=== PATIENT | female | born 1945 | race African-American/Black ===

== ENCOUNTER 2020-05-12 13:34 | Observation (INO) | payer MEDICARE, MEDICAID, SELFPAY ==
[2020-05-12] VITALS (13 sets, daily range): BP systolic 122–159; BP diastolic 66–97; PULSE 66–104; RESP 16–18; TEMP 36.2–36.4; O2SAT 91–99; BMI 27.6
--- NOTE | 2020-05-12 | IR_ITS ---
APPROVED REPORT Patient Location: Inpatient Washing Machine Striper: MARLENA Dao RT (R) PROCEDURES 1. Left heart cathaterization 2. Selective coronary arteriography 3. Left Ventriculography 4. [place] Beckie Graft arteriography 5. CAMACHO arteriography INDICATION 1. Unstable Angina, 2. Coronary artery disease, 3. CABG Informed consent was obtained prior to the procedure. COMPLICATIONS NONE Estimated Blood Loss: LESS THAN 10 ML TECHNIQUE One percent lidocaine was used to anesthetize the right groin. The right femoral artery was accessed via the Seldinger technique. A 4-Italian sheath was placed in the right femoral artery. The JL-4 and JR-4 catheter was also used to perform left heart catheterization left ventriculogram and selective coronary angiogram. At the end of the procedure the patient was transferred to the post-op holding area in stable condition for arterial sheath removal. ANGIOGRAPHIC RESULTS The left main artery normal The left anterior descending artery stent in mid, with 50% mid in stent The circumflex artery 100% occlusion of OM1. normal flow to [place] LCx The right coronary artery mild luminal irregularities The GRIFFITH ventriculogram reveals Ef 60%. no WMA. no MR The left ventricular end-diastolic pressure 12 SVG to OM1 patent. CAMACHO small and 100% prior to touchdown. angioseal to right groin IMPRESSION 1. Severe 1 vessel CAD with 100% of proximal OM1 2. Patent SVG to OM1 3. Moderate in stent stenosis LAD 4. Small but occluded CAMACHO to LAD 5. Normal LV function 6. Normal LVEDP 7. Angioseal right groin PLAN 1. Dual chamber pacer today. Medical mgmt for coronaries. If pt has continued symptoms, consider FFR of LAD. At this time, hhigh grade 2:1 AV block and 3' heart block takes precidence. Normal EF. F/U next week with me in cardiology clinic. Electronically signed by : Daniel Berkowitz, 05/13/2020 07:41:49
--- NOTE | 2020-05-12 | IR_ITS ---
APPROVED REPORT Patient Location: Inpatient Component Assembler Supervisor: MARLENA Dao RT (R) PROCEDURES 1. Pocket formation for Permanent Pacemaker Placement. 2. Placement of an atrial sensing and pacing coil into the right atrial appendage. 3. Placement of a ventricular sensing and pacing coil in the right ventricular apex. 4. Permanent Pacemaker Placement. INDICATION Second degree heart block Mobitz II, Third degree heart block Informed consent was obtained prior to the procedure. COMPLICATIONS None Estimated Blood Loss: Less than 10 mls TECHNIQUE 1% Lidocaine with epinephrine used to anesthetized the left anterior aspect of the chest. Scalpel was used to make the initial cutaneous incision while electrocautery was used to dissect down tinto the fascia. The fascia was lifted off the pectoralis muscle and digitally manipulated creating a pocket for the pacemaker. The patient was then placed in Trendelenburg position and the subclavian vein was accessed twice via the Selinger technique, there are two wires in the vein. A 6 Albanian sheath was placed under fluoroscopic guidance into the subclavian vein over one of the wires while keeping the other wire in place within the subclavian vein. The dilator was removed from the sheath. Using fluoroscopic guidance, the ventricular lead was placed into the right ventricular apex, screwed and secured into place. Electronic interrogation proved acceptable thresholds and voltage within the lead. Using 3-0 silk, the ventricular lead was then secured into place. Lead was secured to the facia using the 3-0 silk. Following this, the sheath was pealed away. An additional 6 Albanian fresh sheath and dilator was placed over the existing wire. Using fluoroscopic guidance, the atrial lead was the placed into the right atrial appendage and screwed and secured in place. Electrical interrogation demonstrated acceptable thresholds and voltage number. The atrial lead was then secured into place using 3-0 silk. 1 gram of Ancef was used to flush the pocket. Following the pacemaker generator being secured to the fascia and in place, Monocryl was used to close the subcutaneous layers while omid were used to close the cutaneous layer. A pressure dressing was placed and the patient was transferred to the postop holding area in stable condition for postoperative care. Dr Daniel Berkowitz was primary smoking tobacco packing machine hand, Dr Antonio Valverde observed. INTERROGATION Generator Model number: [address], L311 Generator Serial number: [id number] Atrial lead model number: INGEVITY+ 45cm, 7840 Atrial lead serial number: [id number] P-wave: 3.0mV Impedence: 670 ohms Threshold: 1.0V@0.4ms Right Ventricular lead model number: INGEVITY+ 52cm, 7841 Right Ventricular lead serial number: [id number] R-wave: 15.0mV Impedence: 800 ohms Threshold: 1.0V@0.4ms Pacing Parameters: Mode: DDDR Base/Max Track: 60/130ppm No diaphragmatic stimulation at 10 volts. IMPRESSION 1. Successful pocket formation for Permanent Pacemaker Placement. 2. Successful placement of an atrial sensing and pacing coil into the right atrial appendage. 3. Successful placement of a ventricular sensing and pacing coil in the right ventricular apex. 4. Successful permanent Pacemaker Placement. PLAN 1. follow up office visit, post op wound care Electronically signed by : Daniel Berkowitz, 05/13/2020 07:41:00
--- NOTE | 2020-05-12 13:57 | PC.NURSE ---
called dr. larson office to relay that patient had arrived
--- NOTE | 2020-05-12 14:29 | P.CONPHA_ITS ---
[facility] Pharmacy VTE Monitoring - Patient Demographics Admission date: 05/12/20 Report Date: 05/12/20 Time: 14:29 Allergies/Adverse Reactions: Patient Allergies acetaminophen Allergy (Severe, Verified 05/12/20 13:57) Rash hydrocodone Allergy (Severe, Verified 05/12/20 14:02) Rash latex Allergy (Severe, Verified 05/12/20 14:02) Rash Penicillins Allergy (Severe, Verified 05/12/20 14:02) Rash codeine Allergy (Intermediate, Verified 05/12/20 14:02) Vomiting oxycodone Allergy (Intermediate, Verified 05/12/20 14:02) Rash morphine Allergy (Verified 05/12/20 14:02) Height: 1.78 m Weight: 87.543 kg - VTE Risk Was VTE Risk Assessment Performed: Yes VTE Score: 4 VTE Risk Level: Low Risk Clinical Trial Participant: No - Prophylaxis VTE Prophylaxis Ordered?: Yes Types of VTE Prophylaxis: TEDS Knee High
--- NOTE | 2020-05-12 14:30 | HMH.CNCARD ---
History of Present Illness Consult date: 05/12/20 Requesting physician: Carlos Crandall Consult reason: shortness of breath Chief complaint: Shortness of breath/3rd degree heart block History of present illness: 75-year-old -[place] female transferred from [facility] to [facility] for left heart catheterization and placement of a dual-chamber pacemaker. Patient had been admitted to [facility] for severe dyspnea with exertion. She stated shortness of breath with minimal exertion and even walking across the room made her severely short of breath. Patient did have some chest tightness. She has not had a cardiac ischemic evaluation for several years now. Patient states she has a hard time completing her activities of daily living at home due to the shortness of breath. States she is been having episodes of dizziness and fatigue and is even had episodes of feeling near syncope. April 19, 2020 patient did wear heart monitor which showed a minimal heart rate of 28 with a maximum heart rate of 138. This was consistent with tachybradycardia syndrome. There were no episodes of atrial fibrillation although she did have history of proximal A. fib. Patient is on Xarelto for the proximal A. fib. Monitor also showed episodes of 2-1 AV block Mobitz 2. Last heart catheterization was in 2017 showed adequate revascularization. Patient does have history of CABG. Patient is unsure as to the date of her CABG. Patient was admitted to [facility] with class IV anginal equivalent symptoms and congestive heart failure symptoms. Patient states slight swelling of the lower extremities. washhouse worker reveals sinus rhythm with a heart rate 63 bpm. Blood pressure is stable. Patient has history of coronary artery disease. Controlled diabetes. Hyperlipidemia. Controlled hypertension. Patient states history of a stroke. Patient denies tobacco use. Discussed plan of care with Dr. Valverde. Patient is scheduled for a left and right heart catheterization today due to class IV anginal equivalent symptoms and congestive heart failure symptoms. Patient is also scheduled for a dual-chamber pacemaker due to intermittent third-degree AV block. History of [id number] syndrome. Pending on the results of the left and right heart catheterization, changes to medications and treatment therapy may be recommended. Thank you for allowing cardiology to participate in the care of this patient. [facility] History I have reviewed the patient's past medical history: Yes Medical History: Reports:: Arrhythmia, Coronary Artery Disease, Hyperlipidemia, Hypertension Denies:: Diabetes Mellitus Type 1, Diabetes Mellitus Type 2 *Have you ever received a pneumonia vaccine?: Yes *Have you received a flu vaccine this season?: Yes Other Medical History: Reports: Anemia, Cataracts, Sinus Problems Laterality Cases: Right: Arthroscopy Shoulder, Bilateral: Cataract Other Surgeries: Yes: Cardiac Catheterization, Cardiac Surgery, Cholecystectomy, Colonoscopy, Hysterectomy-Partial - *Social History Last grade of school completed: Advanced degree Smoking Status: Former smoker Alcohol Intake: never *Occupational Status:: retired Household Members: none *Travel in the last 8 weeks: None Family Hx:: Cancer, Other Meds Home Medications Medication Instructions Recorded Confirmed Type Acyclovir [Acyclovir 800mg tab] 800 mg PO 5XDAY 05/12/20 05/12/20 History Chlorthalidone 25 mg PO BID 05/12/20 05/12/20 History Ezetimibe [Zetia] 10 mg PO HS 05/12/20 05/12/20 History Isosorbide Mononitrate [Isosorbide 15 mg PO DAILY 05/12/20 05/12/20 History Mononitrate ER] Rivaroxaban [Xarelto 15mg tablet] 15 mg PO DAILY 05/12/20 05/12/20 History Simvastatin [Zocor 10mg] 10 mg PO HS 05/12/20 05/12/20 History Temazepam [Restoril] 15 mg PO HS PRN 05/12/20 05/12/20 History Allergies Allergy/AdvReac Type Severity Reaction Status Date / Time ac
--- NOTE | 2020-05-12 16:10 | HMH.PHAINT ---
HOME MEDICATIONS RECONCILED FROM MD OFFICE LIST (DR. FRAZIER).
--- NOTE | 2020-05-12 17:23 | PC.NURSE ---
Pt is A&Ox4. Since being on the floor pt has ambulated independently, pt has been on RA w/ o2 >95%. Pt has not c/o SOB or any pain while on floor. Pt has been down in laboratory [facility] since 1619. No other acute changes or complaints.
--- NOTE | 2020-05-12 18:40 | P.PN_ITS ---
[facility] Anesthesia Checklist - Patient Identification Patient Identification: Arm Band - Structural Data Admitted From: Home Planned Operative Procedure/s: Left heart cath, dual chamber pacemaker Consent for Planned Operative Procedure(s) Verified: Yes Verified Documents: Surgical Consent, History and Physical - NPO Status Verified Time NPO: 00:00 - Cardiovascular Assessment Heart Sounds: S1 & S2 Pulse Strength: Baseline Pulse Rhythm: Regular Peripheral Edema: No - Airway Assessment C-Spine Mobility Assessed: Yes TMJ Mobility Assessed: Yes Dentition: Poor Dentition - Neurological Assessment Level of Consciousness: Awake, Alert Hx Seizures: No Numbness or tingling in extremities: No - Anesthesia Plan Anesthesia Risk discussed: Yes Anesthesia Plan: Verified ASA Class: IV Anesthesia Type: MAC - Preoperative Comments Pre-Operative Comments: [facility] History I have reviewed the patient's past medical history: Yes ([facility]) Medical History: Reports:: Arrhythmia, Coronary Artery Disease, Hyperlipidemia, Hypertension Denies:: Diabetes Mellitus Type 1, Diabetes Mellitus Type 2 *Have you ever received a pneumonia vaccine?: Yes *Have you received a flu vaccine this season?: Yes Other Medical History: Reports: Anemia, Cataracts, Sinus Problems Anesthesia experience/problems:: None Laterality Cases: Right: Arthroscopy Shoulder, Bilateral: Cataract Other Surgeries: Yes: Cardiac Catheterization, Cardiac Surgery, Cholecystectomy, Colonoscopy, Hysterectomy-Partial - *Social History Last grade of school completed: Advanced degree Smoking Status: Former smoker Alcohol Intake: never Substance Use Type: denies use *Occupational Status:: retired Household Members: none *Travel in the last 8 weeks: None Family Hx:: Cancer, Other
--- NOTE | 2020-05-12 20:17 | HMH.HP ---
*Admission Date: 05/12/20 *Chief complaint: pacemaker *History of present illness: this pt was sent from [facility] for pacemaker for tachybrady syndrome 75-year-old -[place] female transferred from [facility] to [facility] for left heart catheterization and placement of a dual-chamber pacemaker. Patient had been admitted to [facility] for severe dyspnea with exertion. She stated shortness of breath with minimal exertion and even walking across the room made her severely short of breath. Patient did have some chest tightness. She has not had a cardiac ischemic evaluation for several years now. Patient states she has a hard time completing her activities of daily living at home due to the shortness of breath. States she is been having episodes of dizziness and fatigue and is even had episodes of feeling near syncope. April 19, 2020 patient did wear heart monitor which showed a minimal heart rate of 28 with a maximum heart rate of 138. This was consistent with tachybradycardia syndrome. There were no episodes of atrial fibrillation although she did have history of proximal A. fib. Patient is on Xarelto for the proximal A. fib. Monitor also showed episodes of 2-1 AV block Mobitz 2. Last heart catheterization was in 2017 showed adequate revascularization. Patient does have history of CABG. Patient is unsure as to the date of her CABG. Patient was admitted to [facility] with class IV anginal equivalent symptoms and congestive heart failure symptoms. Patient states slight swelling of the lower extremities. quality assurance monitor chassis reveals sinus rhythm with a heart rate 63 bpm. Blood pressure is stable. Patient has history of coronary artery disease. Controlled diabetes. Hyperlipidemia. Controlled hypertension. Patient states history of a stroke. Patient denies tobacco use. Discussed plan of care with Dr. Valverde. Patient is scheduled for a left and right heart catheterization today due to class IV anginal equivalent symptoms and congestive heart failure symptoms. Patient is also scheduled for a dual-chamber pacemaker due to intermittent third-degree AV block. History of [id number] syndrome. Pending on the results of the left and right heart catheterization, changes to medications and treatment therapy may be recommended. pt was seen in room after procedure and was doing better [facility] History I have reviewed the patient's past medical history: Yes Medical History: Reports:: Arrhythmia, Coronary Artery Disease, Hyperlipidemia, Hypertension Denies:: Diabetes Mellitus Type 1, Diabetes Mellitus Type 2, Seizures *Have you ever received a pneumonia vaccine?: Yes *Have you received a flu vaccine this season?: Yes Other Medical History: Reports: Anemia, Cataracts, Sinus Problems Anesthesia experience/problems:: None Laterality Cases: Right: Arthroscopy Shoulder, Bilateral: Cataract Other Surgeries: Yes: Cardiac Catheterization, Cardiac Surgery, Cholecystectomy, Colonoscopy, Hysterectomy-Partial - *Social History Last grade of school completed: Advanced degree Smoking Status: Former smoker Alcohol Intake: never *Occupational Status:: retired Household Members: none *Travel in the last 8 weeks: None Family Hx:: Cancer, Other Review of Systems - Review of Systems Review of systems:: pertinent systems reviewed and negative unless documented below - Constitutional Denies fever(s) - Eyes Denies change in vision - ENT Denies sore throat - *Cardiovascular Reports shortness of breath with activity, Reports slow heart rate, Denies chest pain - *Respiratory Denies cough - *Gastrointestinal Denies abdominal pain - *Genitourinary Denies blood in urine - *Musculoskeletal Denies joint pain - Integumentary/Breasts Denies rash - *Neurologic Reports weakness, Denies seizure-like activity, Denies localized weakness - Psychiatric Denies anxiety Meds Home Medi
[2020-05-13] VITALS: BP 158/85; PULSE 71; RESP 16; TEMP 36.3; O2SAT 94
[2020-05-13 01:00] VITALS: BP 113/56; PULSE 84; RESP 16; TEMP 36.9; O2SAT 98
--- NOTE | 2020-05-13 02:19 | PC.NURSE ---
0145 patient c/o pain to pacemaker insertion site, new order received by dr. larson.
--- NOTE | 2020-05-13 03:50 | PC.NURSE ---
patient has voiced several concerns throughout shift regarding pacemaker. if she can have a microwave in home or a magnetic door on her appartment with the pacemaker. explained the new pacemakers aren't usually affected by these things but will discuss with physician prior to discharge.
[2020-05-13 03:56] VITALS: BP 123/53; PULSE 72; RESP 16; TEMP 37.1; O2SAT 100
[2020-05-13 05:05] VITALS: BMI 27.1
--- NOTE | 2020-05-13 05:30 | PC.NURSE ---
shift summary, patient has c/o pain once this shift, treated with tamadol successfully. states pacemaker incision tender. precipitator supervisor has shown ventricular pacing as well as a/v pacing. vs have remained within normal limits. has denied cp, soa,nausea or vomiting. pacemaker dressing and right groin cath site dressing remain c,d,i. education done multiple times throughout shift regarding activity restrictions.
[2020-05-13 06:44] LABS: Anion Gap 9.4 mEq/L (5-15); Basophils % 0.6 % (0.1-2.0); Blood Urea Nitrogen 18 mg/dl (7-17); Calcium 9.6 mg/dl (8.4-10.2); Carbon Dioxide 27 mmol/L (22.0-30.0); Chloride 105 mmol/L (98-107); Creatinine Clearance Estimated 64 mL/min (50-200); Eosinophils # 0.2 K/mm3 (0.0-0.4); Eosinophils % 3.3 % (0.1-12.0); Estimated Glomerular Filt Rate 70 ml/min (>60); GFR (African American) 84 ML/MIN (>60); Glucose 91 mg/dl (74-100); Hematocrit 35.8 % (37.0-47.0); Hemoglobin 11.5 g/dL (12.2-16.2); Lymphocytes # 1.2 K/mm3 (0.7-4.5); Lymphocytes % 24.2 % (10-50); Mean Corpuscular HGB Conc 32.3 g/dL (31.8-35.4); Mean Corpuscular Hemoglobin 29.2 pg (27.0-31.2); Mean Corpuscular Volume 90.6 fl (81-99); Mean Platelet Volume 7.5 fl (7.4-10.4); Monocytes # 0.4 K/mm3 (0.1-1.0); Neutrophils # 3.3 K/mm3 (1.8-7.8); Platelet Count 257 K/mm3 (142-424); Potassium 3.4 mmoL/L (3.5-5.1); Red Blood Count 3.95 M/mm3 (4.20-5.40); Red Cell Distribution Width 13.8 % (11.5-17.5); Sodium 138 mmol/L (136-145)
[2020-05-13 07:42] VITALS: BP 116/58; PULSE 70; PULSE 75; RESP 18; TEMP 37; O2SAT 93
[2020-05-13 08:44] VITALS: RESP 18
--- NOTE | 2020-05-13 09:39 | HMH.PNCARD ---
Subjective Date: 05/13/20 Time: 09:39 Principal diagnosis: Pacer implantation Interval history: 75-year-old black female at bedside in no acute distress. Some soreness at the pacer site but otherwise doing well. Patient has a follow-up appointment with Dr. Riggins next week. Telemetry shows intermittent pacing with capture. [facility] results: ANGIOGRAPHIC RESULTS The left main artery normal The left anterior descending artery stent in mid, with 50% mid in stent The circumflex artery 100% occlusion of OM1. normal flow to [place] LCx The right coronary artery mild luminal irregularities The GRIFFITH ventriculogram reveals Ef 60%. no WMA. no MR The left ventricular end-diastolic pressure 12 SVG to OM1 patent. CAMACHO small and 100% prior to touchdown. angioseal to right groin IMPRESSION 1. Severe 1 vessel CAD with 100% of proximal OM1 2. Patent SVG to OM1 3. Moderate in stent stenosis LAD 4. Small but occluded CAMACHO to LAD 5. Normal LV function 6. Normal LVEDP 7. Angioseal right groin PLAN 1. Dual chamber pacer today. Medical mgmt for coronaries. If pt has continued symptoms, consider FFR of LAD. At this time, hhigh grade 2:1 AV block and 3' heart block takes precidence. Normal EF. F/U next week with me in cardiology clinic. Electronically signed by : Daniel Berkowitz, 05/13/2020 07:41:49 Exam Vital signs and Labs for Last 24 Hours: Temp Pulse Resp BP Pulse Ox 98.6 F 75 18 116/58 L 93 L 05/13/20 07:42 05/13/20 07:42 05/13/20 08:44 05/13/20 07:42 05/13/20 07:42 Laboratory Results - last 24 hr 05/13/20 05:54: WBC 5.0, RBC 3.95 L, Hgb 11.5 L, Hct 35.8 L, MCV 90.6, MCH 29.2, MCHC 32.3, RDW 13.8, Plt Count 257, MPV 7.5, Neut % (Auto) 65.0, Lymph % (Auto) 24.2, [place] % (Auto) 7.0, Eos % (Auto) 3.3, Baso % (Auto) 0.6, Neut # (Auto) 3.3, Lymph # (Auto) 1.2, [place] # (Auto) 0.4, Eos # (Auto) 0.2, Baso # (Auto) 0.0 05/13/20 05:54: Sodium 138, Potassium 3.4 L, Chloride 105, Carbon Dioxide 27, Anion Gap 9.4, BUN 18 H, Creatinine 0.80, Estimated Creat Clear 64, Estimated GFR 70, Est GFR ( Amer) 84, Glucose 91, Calcium 9.6 I & O for Last 24 hours: Intake & Output 05/10/20 05/11/20 05/12/20 05/13/20 11:59 11:59 11:59 11:59 Intake Total 360 / 360 Balance 360 / 360 Weight 189 lb 9 oz - *Routine Respiratory Exam Present: CTA bilaterally - *Routine Cardiovascular Exam Present: RRR Progress Note: A&P (1) Third degree heart block Status: Acute (2) Angina, class IV Status: Acute (3) Congestive heart failure Status: Acute (4) HTN (hypertension) Status: Acute (5) HLD (hyperlipidemia) Status: Acute (6) Diabetes Status: Acute (7) Overweight (BMI 25.0-29.9) Status: Acute (8) Tachy-keith syndrome Status: Acute (9) A-fib Status: Acute (10) Hx of CABG Status: Acute Assessment and Plan for All Diagnoses:: Okay for discharge home from cardiology standpoint. Resume home medications. Patient has an appointment next week with Dr. Berkowitz.
[2020-05-13 11:25] VITALS: BP 111/78; PULSE 86; RESP 18; TEMP 36.4; O2SAT 93
--- NOTE | 2020-05-13 13:52 | HMH.DCSUM ---
General - General Admission date:: 05/12/20 Discharge date: 05/13/20 HPI HPI: this pt was sent from [facility] for pacemaker for tachybrady [id number] -[place] female transferred from [facility] to [facility] for left heart catheterization and placement of a dual-chamber pacemaker. Patient had been admitted to [facility] for severe dyspnea with exertion. She stated shortness of breath with minimal exertion and even walking across the room made her severely short of breath. Patient did have some chest tightness. She has not had a cardiac ischemic evaluation for several years now. Patient states she has a hard time completing her activities of daily living at home due to the shortness of breath. States she is been having episodes of dizziness and fatigue and is even had episodes of feeling near syncope. April 19, 2020 patient did wear heart monitor which showed a minimal heart rate of 28 with a maximum heart rate of 138. This was consistent with tachybradycardia syndrome. There were no episodes of atrial fibrillation although she did have history of proximal A. fib. Patient is on Xarelto for the proximal A. fib. Monitor also showed episodes of 2-1 AV block Mobitz 2. Last heart catheterization was in 2017 showed adequate revascularization. Patient does have history of CABG. Patient is unsure as to the date of her CABG. Patient was admitted to [facility] with class IV anginal equivalent symptoms and congestive heart failure symptoms. Patient states slight swelling of the lower extremities. threat monitoring analyst reveals sinus rhythm with a heart rate 63 bpm. Blood pressure is stable. Patient has history of coronary artery disease. Controlled diabetes. Hyperlipidemia. Controlled hypertension. Patient states history of a stroke. Patient denies tobacco use. Discussed plan of care with Dr. Valverde. Patient is scheduled for a left and right heart catheterization today due to class IV anginal equivalent symptoms and congestive heart failure symptoms. Patient is also scheduled for a dual-chamber pacemaker due to intermittent third-degree AV block. History of [id number] syndrome. Pending on the results of the left and right heart catheterization, changes to medications and treatment therapy may be recommended. pt was seen in room after procedure and was doing better Hospital Course Hospital Course: Laboratory Tests 05/13/20 05/13/20 05:54 05:54 WBC 5.0 RBC 3.95 L Hgb 11.5 L Hct 35.8 L MCV 90.6 MCH 29.2 MCHC 32.3 RDW 13.8 Plt Count 257 MPV 7.5 Neut % (Auto) 65.0 Lymph % (Auto) 24.2 Fallon % (Auto) 7.0 Eos % (Auto) 3.3 Baso % (Auto) 0.6 Neut # (Auto) 3.3 Lymph # (Auto) 1.2 Fallon # (Auto) 0.4 Eos # (Auto) 0.2 Baso # (Auto) 0.0 Sodium 138 Potassium 3.4 L Chloride 105 Carbon Dioxide 27 Anion Gap 9.4 BUN 18 H Creatinine 0.80 Estimated Creat Clear 64 Estimated GFR 70 Est GFR ( Amer) 84 Glucose 91 Calcium 9.6 pacemaker xray:IMPRESSION 1. Successful pocket formation for Permanent Pacemaker Placement. 2. Successful placement of an atrial sensing and pacing coil into the right atrial appendage. 3. Successful placement of a ventricular sensing and pacing coil in the right ventricular apex. 4. Successful permanent Pacemaker Placement. PLAN 1. follow up office visit, post op wound care heart cath: IMPRESSION 1. Severe 1 vessel CAD with 100% of proximal OM1 2. Patent SVG to OM1 3. Moderate in stent stenosis LAD 4. Small but occluded CAMACHO to LAD 5. Normal LV function 6. Normal LVEDP 7. Angioseal right groin PLAN 1. Dual chamber pacer today. Medical mgmt for coronaries. If pt has continued symptoms, consider FFR of LAD. At this time, high grade 2:1 AV block and 3' heart block takes precidence. Normal EF. F/U next week with me in cardiology
--- NOTE | 2020-05-13 14:23 | PC.NURSE ---
1250 - PT IS WONDERING WHEN SHE WILL BE DISCHARGED, MD OFFICE CALLED AND SPOKE TO DR. TUBBS WHO STATES [facility]ACHA IS WORKING ON IT . \ 0150 - CARE MANAGEMENT HAVE SPOKE W/ NATACHA ABOUT DC WHO STATES SHE IS WORKING ON IT .
== END 2020-05-13 14:50 | disposition home or self-care (01) ==
PROVIDERS: Internal Medicine; Internal Medicine Cardiovascular Disease; Admitting Provider Emergency Medicine; PCP Family Medicine; Visit Provider Emergency Medicine
DX: I44.2 Atrioventricular block, complete; I25.118 Atherosclerotic heart disease of native coronary artery with other forms of angina pectoris; Z95.1 Presence of aortocoronary bypass graft; I49.5 Sick sinus syndrome; I11.0 Hypertensive heart disease with heart failure; E78.5 Hyperlipidemia, unspecified; E11.9 Type 2 diabetes mellitus without complications; Z79.899 Other long term (current) drug therapy; Z79.01 Long term (current) use of anticoagulants; I50.9 Heart failure, unspecified; I48.91 Unspecified atrial fibrillation; T82.855A Stenosis of coronary artery stent, initial encounter; Y83.1 Surgical operation with implant of artificial internal device as the cause of abnormal reaction of the patient, or of later complication, without mention of misadventure at the time of the procedure
CPT/HCPCS: 33208; 80048; 85025; 93459; C1725; C1760; C1769; C1785; C1898; G0378; Q9967